=== PATIENT | male | born 1995 | race Caucasian/White ===

== ENCOUNTER 2022-05-28 09:11 | Day surgery (SDC) | payer BC ==
[~2022-05-28 09:11] MED LIST: Acetaminophen 1,000 MG in Premix Bag 1 BAG IV SCH; Albuterol 0.083% 2.5 MG/3 ML Neb Soln NEB PRN; HYDROmorphone 1 MG/ML Syringe IVPUSH PRN; Lactated Ringers 1,000 ML IV SCH; Lidocaine 2% 5 ML SDV ONE; Metoclopramide 10 MG/2 ML SDV IVPUSH PRN; Morphine 2 MG/ML SYRINGE IVPUSH PRN; Naloxone 0.4 MG/ML SDV IVPUSH PRN; Ondansetron 4 MG/2 ML SDV IVPUSH PRN; Ondansetron 4 MG/2 ML SDV ONE; Pregabalin 75 MG Cap PO SCH; Rocuronium 100 MG/10 ML MDV ONE; ceFAZolin 2 GM in Premix Bag 1 BAG IV SCH; fentaNYL 50 MCG/ML SDV IVPUSH PRN
[2022-05-28] MEDS ORDERED: Ropivacaine 0.5% 5 MG/ML 30 ML SDV ONE (10:09)
[2022-05-28] MEDS ORDERED: Propofol 200 MG/20 ML SDV ONE (10:15)
[2022-05-28] MEDS ORDERED: propofoL 100 ML ONE (10:16)
[2022-05-28] MEDS ORDERED: fentaNYL 100 MCG/2 ML SDV ONE (10:24)
[2022-05-28] MEDS ORDERED: Octyl 2-Cyanoacrylate 1 Tube ONE (10:27)
[2022-05-28] MEDS ORDERED: Bupivacaine 0.5% 30 ML SDV ONE (10:27)
[2022-05-28] MEDS ORDERED: Midazolam 1 MG/ML 2 ML SDV ONE (11:09)
[2022-05-28] MEDS ORDERED: ceFAZolin 1 GM Vial ONE (11:33)
[2022-05-28] MEDS ORDERED: Phenylephrine 1% 10 MG/ML SDV ONE (11:45)
[2022-05-28] MEDS ORDERED: Sugammadex Sodium 200 MG/2 ML VIAL ONE (12:05)
[2022-05-28] MEDS ORDERED: Ketorolac 30 MG/ML SDV ONE (12:05)
== END 2022-05-28 14:40 | disposition home or self-care (01) ==
LOC: MW.SDS 09:11
PROVIDERS: ATTEND Surgery
DX: K40.90 Unilateral inguinal hernia, without obstruction or gangrene, not specified as recurrent (principal); Z87.891 Personal history of nicotine dependence
CPT/HCPCS: 49650; A9270; J0690; J1885; J2250; J2370; J2405; J2704; J2795; J3010; J3490; J7120; 00840; 64488; C1781; J2710